=== PATIENT | male | born 1970 | race Two or more races ===

== ENCOUNTER 2024-12-01 01:03 | Emergency (ER) | payer MEDICAID, SELFPAY ==
[2024-12-01 01:04] VITALS: BMI 26.6
[2024-12-01 01:32] VITALS: BP 127/66; PULSE 68; RESP 22; TEMP 36.5; O2SAT 97
--- NOTE | 2024-12-01 01:47 | XR_ITS ---
Examination: CT abdomen and pelvis without contrast. Coronal 3-D reconstructions. Sagittal 2-D reconstructions. Date and time of exam:December 01, 2024, 0252 hours INDICATIONS: Left flank and lower back pain CTDI: vol (mGy): Today DLP: (mGycm): 393 Technique: Axial images of the abdomen have been obtained, 3 mm slice thickness Intravenous contrast material has not been administered. Low dose protocols were performed. One or more of the following dose reduction techniques were used; automated exposure control, adjustment of the mA and/or KV according to patient size, use of iterative reconstruction technique. Findings: No focal liver or splenic lesion No gallstones No pancreatic or adrenal mass Bilateral 1 to 2 mm renal calculi Mild left hydronephrosis, 5 mm calculus at the left ureterovesical junction No bowel obstruction Bladder wall thickening Mild fluid distended small bowel loops Normal appendix IMPRESSION: Mild left hydronephrosis, 5 mm distal left ureterovesical junction calculus
--- NOTE | 2024-12-01 01:48 | PD.EDRME ---
Rapid Medical Screening Exam RME Arrival date/time: 12/01/24 01:03 54M with no significant PMH presents to ED with 2 hours of sudden L flank pain and N/V. Chief Complaint: Back Pain/Injury Vital signs: Vital Signs Temperature 97.7 F 12/01/24 01:32 Pulse Rate 68 12/01/24 01:32 Respiratory Rate 22 H 12/01/24 01:32 Blood Pressure 127/66 12/01/24 01:32 Pulse Oximetry (%) 97 12/01/24 01:32 Oxygen Delivery Method Room Air 12/01/24 01:32
[2024-12-01] MEDS: KETOROLAC INJ 60 MG/2 ML VIAL IM (01:52)
[2024-12-01] MEDS: ONDANSETRON ODT 4 MG TABRAP PO (01:53)
[2024-12-01 02:19] LABS: Basophils # (Auto) 0.1 Thou/mm3 (0.0-0.2); Basophils % (Auto) 1 % (0-2.5); Eosinophils # (Auto) 0.2 Thou/mm3 (0.0-0.5); Eosinophils % (Auto) 2 % (0-10); Hematocrit 38.1 % (41.0-53.0); Hemoglobin 12.7 g/dL (13.5-16.0); Immature Granulocytes Auto 0.05 Thou/mm3 (0.00-0.00); Lymphocytes # (Auto) 2.6 Thou/mm3 (1.0-4.8); Lymphocytes % (Auto) 26 % (10-50); Mean Corpuscular HGB Conc 33.3 g/dl (31.0-37.0); Mean Corpuscular Hemoglobin 27.4 pg (25.0-35.0); Mean Corpuscular Volume 82 fL (80-100); Monocytes # (Auto) 1.0 Thou/mm3 (0.0-0.8); Monocytes % (Auto) 9 % (0-12); Neutrophils # (Auto) 6.2 Thou/mm3 (1.8-7.7); Neutrophils % (Auto) 62 % (37-80); Nucleated Red Blood Cell # 0.00 Thou/mm3 (0.00-0.00); Nucleated Red Blood Cell % 0 /100 WBC (0); Platelet Count 257 Thou/mm3 (140-440); RDW Standard Deviation 42.9 fL (35.1-43.9); Red Blood Count 4.64 Miln/mm3 (4.50-5.90); White Blood Count 10.1 Thou/mm3 (3.8-10.6)
[2024-12-01 02:33] LABS: Alanine Aminotransferase 55 U/L (10-49); Albumin, Serum 4.1 gm/dL (3.5-5.0); Albumin/Globulin Ratio 1.8 (1.2-2.2); Alkaline Phosphatase 66 U/L (46-116); Anion Gap 3 (7-16); Aspartate Amino Transferase 34 U/L (0-34); BUN/Creatinine Ratio 16 Ratio (12-20); Bilirubin,Total 0.4 mg/dL (0.3-1.2); Blood Urea Nitrogen 16 mg/dL (9-23); Calcium 8.9 mg/dL (8.3-10.6); Calcium (Corrected) 8.9 mg/dL (8.5-10.1); Carbon Dioxide 29.0 mMol/L (20.0-31.0); Chloride 107 mMol/L (98-107); Creatinine (Component) 1.0 mg/dL (0.6-1.3); Estimated Creatinine Clearance 83.5 mL/min (>60); Globulin 2.3 gm/dL (2.3-3.5); Glucose 147 mg/dL (74-106); Lipase 38 U/L (12-53); Osmolality,Calculated 281 (275-295); Potassium 3.7 mMol/L (3.4-5.1); Sodium 139 mMol/L (136-145); Total Protein 6.4 gm/dL (5.7-8.2); eGFR > 60 See Note
[2024-12-01 02:50] LABS: Collection Type, Urine Clean Catch
[2024-12-01 03:17] LABS: Bilirubin,Urine Negative (Negative); Blood,Urine 1+ (Negative); Clarity,Urine Clear (Clear/Hazy); Color,Urine Lt-Yellow (Lt Yel-Yel); Culture Indicated,Urine Not Indicated; Glucose, Urine Negative (Negative); Ketones,Urine Negative (Negative); Leukocyte Esterase,Urine Negative (Negative); Nitrite,Urine Negative (Negative); PH,Urine 6.0 (5.0-7.0); Protein,Urine Negative (Neg - Trace); RBC,Urine 6 /hpf (0-3); Specific Gravity,Urine 1.024 (1.001-1.035); Squamous Epithelial Cell,Urine < 1 /hpf (0-5); Urobilinogen,Urine Negative mg/dL (0.0-1.0); WBC,Urine 2 /hpf (0-5)
[2024-12-01 03:24] LABS: Amphetamine/Methamp Scrn,U Negative (Negative); Barbiturate Screen,Urine Negative (Negative); Benzodiazepines Screen,Urine Negative (Negative); Benzoylecgonine Screen, Ur Negative (Negative); Fentanyl Screen,Urine Negative (Negative); Opiate Screen,Urine Negative (Negative); THC Screen,Urine Negative (Negative)
--- NOTE | 2024-12-01 03:42 | PRELIM_ITS ---
CT scan of the abdomen and pelvis without intravenous contrast (axial sections with sagittal and coronal reformats) December 01, 2024 0252 hours Clinical History: L flank pain Comparison: No prior study is available for comparison. Findings: The lung bases are clear. There is a 5 mm obstructing calculus in the left ureterovesical junction (axial images 192/268) causing moderate hydroureteronephrosis and periureteric/perinephric fat stranding. Nonobstructing bilateral renal calculi are seen, the largest measuring 2 mm in the right kidney. The liver, gallbladder, pancreas, spleen and adrenals are unremarkable on this noncontrast study. No evidence of bowel obstruction. A moderate amount of fecal material is present in the colon.There is thickening of the small bowel wall with mucosal enhancement and associated mesenteric fat stranding. The appendix is not definitively visualized; however, there is no evidence of inflammatory process in the right lower quadrant to suggest appendicitis.There is no mesenteric or retroperitoneal adenopathy. The urinary bladder is unremarkable. There is no free fluid or free air. The osseous structures are unremarkable. Impression: 5 mm obstructing calculus in the left ureterovesical junction causing moderate hydroureteronephrosis. Thickening of the small bowel wall with mucosal enhancement and associated mesenteric fat stranding. In the appropriate clinical setting, the possibility of enteritis cannot be excluded. Report Electronically Signed By: Brian Youngblood 12/01/2024 3:42:21 AM [EST]
[2024-12-01 03:55] VITALS: BP 132/79; PULSE 77; RESP 18; TEMP 36.7; O2SAT 99
--- NOTE | 2024-12-01 04:24 | PD.EDBACK ---
ED Back Injury Pain RME/HPI General Chief Complaint: Back Pain/Injury Stated Complaint: LEFT LOWER BACK PAIN Arrival date/time: 12/01/24 01:03 Limitations: no limitations RME / HPI RME / HPI Narrative: 12/01/24 01:03 54M with no significant PMH presents to ED with 2 hours of sudden L flank pain and N/V. ----- Dr. Callaway'raven Main ED Evaluation: 54yo male with a history of BPH presents to the ED for a chief complaint of left flank pain x 0000. Patient states he started having sudden significant sharp left flank pain at 0000. Patient states his pain radiates to his abdomen. Patient reports associated nausea and a fever of 101 at home. Patient denies any vomiting or any other associated symptoms. Denies any history of similar symptoms. NKA. Related Data Previous Rx's ?Medication ?Instructions ?Recorded Hydrocodone/Acetaminophen * (NORCO 1 tab PO Q6H PRN PAIN #14 tabs 02/03/16 5/325 *) Allergies Allergy/AdvReac Type Severity Reaction Status Date / Time No Known Allergies Allergy Verified 12/01/24 01:04 Review of Systems Review of Systems Systems Reviewed: All systems reviewed, normal except as documented Past Medical History Past Medical History CARDIAC: Negative Congestive Heart Failure RESPIRATORY: Negative Chronic Obstructive Pulmonary Disease (COPD) GENITOURINARY: Negative Renal Disease ENDOCRINE: Negative Diabetes Mellitus Type 1 or Diabetes Mellitus Type 2 Social History SMOKING STATUS: Never smoker ED Exam General Limitations: Present no limitations General appearance: Present alert and other (actively vomiting, appears uncomfortable) Head Head exam: Present atraumatic Eye Eye exam: Present normal appearance, PERRL and EOMI ENT ENT exam: Present normal exam, normal oropharynx and mucous membranes moist Neck Neck exam: Present normal inspection, full ROM and trachea midline Chest Chest inspection: Present normal inspection and symmetric chest wall rise Respiratory Respiratory exam: Present normal lung sounds bilaterally Cardiovascular Cardiovascular exam: Present regular rate, normal rhythm and normal heart sounds Abdominal Exam Abdominal exam: Present soft and guarding Extremities Exam Extremities exam: Present normal inspection and full ROM Back Exam Back exam: Present normal inspection and full ROM; Absent CVA tenderness (R) or CVA tenderness (L) Neurological Exam Neurological exam: Present alert, oriented X3 and CN II-XII intact Psychiatric Psychiatric exam: Present normal affect and normal mood Skin Skin exam: Present warm, dry, intact and normal color Course Quality Measures none Orders Category Date Time Status CT abdomen pelvis wo con Stat Exams 12/01/24 01:47 Taken CBC Stat Lab 12/01/24 02:01 Completed CMP [Comprehensive Metabolic Panel] Stat Lab 12/01/24 02:01 Completed Drug Screen,Urine Stat Lab 12/01/24 02:17 Completed Lipase Stat Lab 12/01/24 02:01 Completed Urinalysis, C/S if Indicated Stat Lab 12/01/24 02:17 Completed HYDROmorphone INJ [Dilaudid Inj] Med 12/01/24 05:28 Discontinued 1 mg IVP X1 ONE Ketorolac Inj [Toradol Inj] Med 12/01/24 01:47 Discontinued 60 mg IM X1 ONE Morphine Inj Med 12/01/24 04:23 Discontinued 4 mg IVP X1 ONE Ondansetron Inj [Zofran Inj] Med 12/01/24 04:23 Discontinued 4 mg IVP X1 ONE Ondansetron Odt [Zofran Odt] Med 12/01/24 01:47 Discontinued 4 mg PO X1 ONE cefTRIAXone/D5w 1gm IV premix [Rocephin/D5w 1gm IV Med 12/01/24 04:25 Active premix] 1 gm in 50 ml IV Q12HR Vital Signs Vital signs: Vital Signs Temperature 97.7 F 12/01/24 01:32 Pulse Rate 68 12/01/24 01:32 Respiratory Rate 22 H 12/01/24 01:32 Blood Pressure 127/66 12/01/24 01:32 Pulse Oximetry (%) 97 12/01/24 01:32 Oxygen Delivery Method Room Air 12/01/24 01:32 Back Pain / Injury MDM Narrative MDM Narrative:: 54-year-old male with history of BPH presenting to the emergency department with left flank pain that came on suddenly with decreased urinary output but pain slightly less today. Patient reports that he had a fever this afternoon to 101. The patient had labs drawn. His blood pressure stable and otherwise is not febrile here in the emergency department. White count is 10 and H&H is stable. The CT scan is showing a left obstructing kidney stone, urine is without leukocytes. The patient did have a fever and concern that he is having obstructing kidney stone versus UTI versus pyelonephritis. Patient is treated with pain medicine, and antinausea and is still complaining of pain. CT report is reviewed. 0502: Discussed case with [facility]'s transfer center. Discussed patients ED course, exam findings, labs, and radiology results. Awaiting callback. 0600: Care signed out to Dr. Hansen (emergency physician). Past medical, surgical, social and family history reviewed. Vitals and home medications reviewed. Results and treatment plan discussed. They will assume the care of the patient at this time and will follow the patient, pending transfer for urology. Patient data External records reviewed:: [facility] previous records (Per chart review, patient has no previous ED visits or admissions to this facility.) Clinical information provided by:: patient Social determinants that could affect healthcare access:: none Patient has the following chronic illnesses:: BPH How is presenting disease/condition affected by chronic disease/condition?: uneffected by Evaluation data The following diagnostics were reviewed and interpreted by me:: lab results and radiology exam(s) Lab and/or radiology exams considered but not ordered:: none Interpretation Summary: CBC normal, CMP normal, Lipase normal, UA shows 6 RBCs, UDS negative. Telerad Preliminary Report Draft Patient: LEO ROJAS [facility]. Record#: [id number] Birthdate: 1970 Age/Sex: 54 / M Location: [facility] Attending Dr: Ordering Physician: Date of Service: Procedure(s): Accession Number(s): cc: ~ CT scan of the abdomen and pelvis without intravenous contrast (axial sections with sagittal and coronal reformats) December 01, 2024 0252 hours Clinical History: L flank pain Comparison: No prior study is available for comparison. Findings: The lung bases are clear. There is a 5 mm obstructing calculus in the left ureterovesical junction (axial images 192/268) causing moderate hydroureteronephrosis and periureteric/perinephric fat stranding. Nonobstructing bilateral renal calculi are seen, the largest measuring 2 mm in the right kidney. The liver, gallbladder, pancreas, spleen and adrenals are unremarkable on this noncontrast study. No evidence of bowel obstruction. A moderate amount of fecal material is present in the colon.There is thickening of the small bowel wall with mucosal enhancement and associated mesenteric fat stranding. The appendix is not definitively visualized; however, there is no evidence of inflammatory process in the right lower quadrant to suggest appendicitis.There is no mesenteric or retroperitoneal adenopathy. The urinary bladder is unremarkable. There is no free fluid or free air. The osseous structures are unremarkable. Impression: 5 mm obstructing calculus in the left ureterovesical junction causing moderate hydroureteronephrosis. Thickening of the small bowel wall with mucosal enhancement and associated mesenteric fat stranding. In the appropriate clinical setting, the possibility of enteritis cannot be excluded. Report Electronically Signed By: Brian Youngblood 12/01/2024 3:42:21 AM Medications / Prescriptions Medications or Prescriptions considered but not ordered:: none Medication administrations:: Medication Administration History Ceftriaxone Sodium/Dextrose (Rocephin/D5w 1gm Iv Premix) 1 gm in 50 mls @ 100 mls/hr IV Q12HR ELYSE Stop: 12/08/24 04:24 Last Infusion: 12/01/24 05:15 Dose: Infused Documented By: Admin: 12/01/24 04:39 Dose: 100 mls/hr Documented By: MOISE Discontinued Medications Hydromorphone HCl (Hydromorphone Inj 2 Mg/Ml Vial) 1 mg IVP X1 ONE Stop: 12/01/24 05:29 Last Admin: 12/01/24 05:46 Dose: 1 mg Documented By: MOISE Ketorolac Tromethamine (Ketorolac Inj 60 Mg/2 Ml Vial) 60 mg IM X1 ONE Stop: 12/01/24 01:48 Last Admin: 12/01/24 01:52 Dose: 60 mg Documented By: LUCIAN Morphine Sulfate (Morphine Sulf Inj 10 Mg/Ml Vial) 4 mg IVP X1 ONE Stop: 12/01/24 04:24 Last Admin: 12/01/24 04:39 Dose: 4 mg Documented By: MOISE Ondansetron HCl (Ondansetron Odt 4 Mg Tabrap) 4 mg PO X1 ONE; Protocol Stop: 12/01/24 01:48 Last Admin: 12/01/24 01:53 Dose: 4 mg Documented By: LUCIAN Ondansetron HCl (Ondansetron Inj 2 Mg/Ml Inj 2 Ml) 4 mg IVP X1 ONE; Protocol Stop: 12/01/24 04:24 Last Admin: 12/01/24 04:38 Dose: 4 mg Documented By: MOISE see above Consultations Consultation(s) initiated? (list below): No Diagnosis Differential diagnosis back pain/injury: renal colic, pyelonephritis and other (UTI, infected kidney stone) Most likely diagnosis given after review of the tests above:: see clinical impression below Admission Indicated Admission indicated?: not indicated Explain why admission is indicated or not indicated:: Patient requires a higher [id number]. Admission Request Was there a request for admission?: No Disposition Plan Disposition Plan: other (specify) (Signed out to Dr. Hansen at 0600 pending transfer for urology.) Discharge Plan Plan Patient condition on transfer: Stable Prescriptions/Referrals Prescriptions/Med Rec: No Action Hydrocodone/Acetaminophen * (NORCO 5/325 *) 1 TAB tablet 1 tab PO Q6H PRN (Reason: PAIN) Qty: 14 0RF Referrals: Randy James MD [Primary Care Provider] - In 1 week Problem List Clinical Impression: Hydroureteronephrosis, Kidney stone on left side, Hydronephrosis with obstructing calculus Patient/Caregiver Discharge Instructions Print Language: Slovenian
[2024-12-01] MEDS: ONDANSETRON INJ 2 MG/ML INJ 2 ML 4 MG IVP (04:38)
[2024-12-01] MEDS: cefTRIAXone/D5w 1gm IV premix 1 GM/50 ML BAG IV (04:39)
[2024-12-01] MEDS: MORPHINE SULF INJ 10 MG/ML VIAL 4 MG IVP (04:39)
--- NOTE | 2024-12-01 04:54 | PC.NURSE ---
FAXED INFORMATION AND CALLED [facility], TALKED TO [employer] SALES REPRESENTATIVE NURSE, THEY WILL REVIEW CASE.
--- NOTE | 2024-12-01 05:03 | PC.NURSE ---
FAXED PT INFORMATION TO ALLIE GONZALEZ AND CALLED TRANSFER CENTER, TRANSFER CENTER NURSE TALKING TO DR. BAÑUELOS NOW.
[2024-12-01] MEDS: HYDROmorphone INJ 2 MG/ML VIAL 1 MG IVP (05:46)
--- NOTE | 2024-12-01 06:30 | PD.EDADDENDU ---
Emergency Room Addendum Addendum Narrative: 0600: Care assumed from Dr. Bridges, the previous shift emergency physician. Past medical, surgical, social and family history reviewed. Vitals and home medications reviewed. I will assume the care of the patient at this time, pending transfer for urology. Please refer to the emergency department record for history and examination from initial visit.? Physical exam by me shows patient under no acute distress at this time. 0950: Patient remains clinically stable throughout the emergency department visit. Re-assessment at the time of disposition demonstrates that the patient is in no acute distress. We reviewed all the results, analysis, and treatment plans. Patient is amenable to discharge. Strict return precautions were outlined. Patient was discharged in stable condition. Diagnoses: -Hydroureteronephrosis -Kidney stone on left side -Hydronephrosis with obstructing calculus -Intractable abdominal pain
[2024-12-01 06:33] VITALS: BP 108/67; PULSE 67; RESP 16; TEMP 37; O2SAT 95
[2024-12-01] MEDS: SODIUM CHLORIDE 0.9% 1000 ML 1,000 ML 999 ML IV ×2 (07:48→07:49)
[2024-12-01 08:03] VITALS: BP 100/71; PULSE 60; RESP 18; TEMP 36.6; O2SAT 99
[2024-12-01 10:10] VITALS: BP 116/74; PULSE 81; RESP 16; TEMP 36.7; O2SAT 99
== END 2024-12-01 10:10 | disposition home or self-care (01) ==
PROVIDERS: Physician Assistant; Emergency Provider Family Medicine; PCP Family Medicine
DX: N13.2 Hydronephrosis with renal and ureteral calculous obstruction (principal); N40.0 Benign prostatic hyperplasia without lower urinary tract symptoms
CPT/HCPCS: 36415; 74176; 80053; 80307; 81001; 83690; 85025; 96361; 96365; 96372; 96375; 99284; J0696; J1171; J1885; J2270; J2405; J7030; Q0162